=== PATIENT | male | born 1955 | race Caucasian/White ===

== ENCOUNTER 2023-05-05 21:22 | Emergency (ER) | payer MEDICARE ==
[~2023-05-05] VITALS: Ht 175.3 cm; Wt 132.9 kg
[2023-05-05] MEDS: DIPHENHYDRAMINE HCL 25 MG CAPSULE PO ONE (22:00)
[2023-05-05] MEDS: KETOROLAC 30MG VIAL (30MG/ML) IVP ONE (22:00)
[2023-05-05] MEDS: ONDANSETRON 4MG INJ IVP ONE (22:00)
[2023-05-05 22:10] LABS: BASOPHILS # (AUTO) 0.07 K/uL (0.00-0.20); BASOPHILS % (AUTO) 0.7 % (0.0-5.0); EOSINOPHILS # (AUTO) 0.36 K/uL (0.00-0.70); EOSINOPHILS % (AUTO) 3.7 % (0.0-8.0); HEMATOCRIT 42.9 % (42-54); IMMATURE GRANULOCYTE ABSOLUTE 0.07 K/uL (0-1); LYMPHOCYTES # (AUTO) 2.7 K/uL (1.0-4.8); LYMPHOCYTES % (AUTO) 27.5 % (21.0-51.0); MEAN CORPUSCULAR HGB CONC 35.9 g/dL (32.0-36.0); MEAN CORPUSCULAR VOLUME 89.2 fL (79-99); MONOCYTES # (AUTO) 0.7 K/uL (0.1-1.0); NEUTROPHILS # (AUTO) 5.9 K/uL (1.8-7.7); NEUTROPHILS % (AUTO) 60.4 % (40.0-77.0); PLATELET COUNT (AUTO) 242 K/uL (130-400); RED BLOOD CELL COUNT(AUTO) 4.81 MIL/uL (4.50-6.20); RED CELL DISTRIBUTION WIDTH 12.6 % (11.0-15.5); WHITE BLOOD COUNT (AUTO) 9.7 K/uL (4.8-10.8)
[2023-05-05 22:19] LABS: CREATININE 1.1 mg/dL (0.5-1.5); POTASSIUM 3.7 mmol/L (3.5-5.1)
[2023-05-05] MEDS: IPRATROPIUM/ALBUTEROL SULFATE 3 ML SOLUTION IH ONE (22:23)
[2023-05-05 22:24] VITALS: PULSE 95; RESP 20
[2023-05-05 22:29] LABS: ALBUMIN 3.5 g/dL (3.5-5.0); BILIRUBIN,TOTAL 0.3 mg/dL (0.2-1.0)
[2023-05-05 22:47] LABS: B-TYPE NATRIURETIC PEPTIDE < 5 pg/mL (0-100)
[2023-05-06 00:08] LABS: RAPID GROUP A STREP negative (NEGATIVE)
[2023-05-06 00:14] LABS: INFLUENZA TYPE A Negative For Type A (NEGATIVE); INFLUENZA TYPE B Negative For Type B (NEGATIVE); SARS-CoV-2, RNA, NAAT NEGATIVE SARS CoV-2 (NEGATIVE)
[2023-05-06] MEDS ORDERED: IBUP-1493 PO (00:23)
[2023-05-06] MEDS ORDERED: LORA-868 PO (00:23)
[2023-05-06] MEDS ORDERED: ALBUHFA IH (00:23)
[2023-05-06] MEDS ORDERED: ACET-66 PO (00:23)
[2023-05-06 01:25] VITALS: BP 139/87; PULSE 90; RESP 18; O2SAT 97
== END 2023-05-06 01:28 | disposition home or self-care (01) ==
LOC: EDH 21:22
DX: J06.9 Acute upper respiratory infection, unspecified (principal); I10 Essential (primary) hypertension; Z20.822 Contact with and (suspected) exposure to COVID-19
CPT/HCPCS: 99285; 71046; 87635; 84484; 80053; 83880; 85025; 87880; 87804 ×2; 36415; 93005; 94640; Q0163; J2405; J1885